=== PATIENT | female | born 1995 | race Caucasian/White ===

== ENCOUNTER 2017-09-03 20:15 | Emergency (ER) | payer BC ==
[2017-09-03] MEDS ORDERED: Ondansetron INJ* 2 MG/ML VIAL IV ONE (20:20)
[2017-09-03] MEDS ORDERED: Ketorolac INJ* 30 MG/ML 1 ML VIAL IV ONE (20:20)
[2017-09-03] MEDS ORDERED: NS 0.9% 1000 ML* 1,000 ML IV ONE (20:20)
[2017-09-03] MEDS ORDERED: diPHENhydraMINE IV* 50 MG in NS 0.9% 50 ML* 50 ML IVPB ONE (20:20)
[2017-09-03 21:12] LABS: Hematocrit 42 % (35-47); Hemoglobin 14.3 g/dl (12.0-16.0); Mean Corpuscular HGB Conc 34 g/dl (31-36); Mean Corpuscular Hemoglobin 30 pg (27-31); Mean Corpuscular Volume 87 fL (80-97); Mean Platelet Volume 9 um3 (7.4-10.4); Red Blood Count 4.82 10^6/ul (4.0-5.4); Red Cell Distribution Width 13 % (10.5-15); White Blood Count 8.3 10^3/ul (3.5-10.8)
[2017-09-03 21:22] LABS: ALT 16 U/L (7-52); AST 15 U/L (13-39); Albumin 4.5 g/dL (3.2-5.2); Alkaline Phosphatase 69 U/L (34-104); Anion Gap 10 mmol/L (2-11); BUN/Creatinine Ratio 10.9 (8-20); Blood Urea Nitrogen 11 mg/dL (6-24); CO2 Carbon Dioxide 24 mmol/L (22-32); Calcium 9.7 mg/dL (8.6-10.3); Chloride 102 mmol/L (101-111); EGFR Non-African American 69.2 (>60); Globulin 3.4 g/dL (2-4); Glucose 106 mg/dL (70-100); Magnesium 2.2 mg/dL (1.9-2.7); Potassium 3.4 mmol/L (3.5-5.0); Sodium 136 mmol/L (133-145); Total Protein 7.9 g/dL (6.4-8.9)
--- NOTE | 2017-09-03 21:31 | RAD ---
Indication: Syncope. Migraine headaches since Monday worsening today. Syncopal episode this evening. Comparison: No relevant prior exams available on the [facility] PACS for comparison. Technique: Noncontrast CT vertex of skull through foramen magnum. Report: The sulci, ventricles, and basal cisterns are normal for age. Barger matter white matter differentiation is preserved without evidence for edema. No intra or extra axial hemorrhage, mass, or fluid collection detected. Unremarkable visualized orbital contents. Unremarkable calvarium and skull base. Unremarkable scalp. The visualized paranasal sinuses and mastoid air spaces are clear. IMPRESSION: Negative unenhanced head CT.
--- NOTE | 2017-09-03 21:45 | ED ---
Sandip Rosario Abhishek, scribed for Veronica Curry MD on 09/03/17 at 2049 . Headache - HPI Summary HPI Summary: This patient is a 22 year old BIBA with a chief complaint of FLYNN since a Monday. The CC is described as worse since today. Pt states syncopal episode at evening around 1700. The patient rates the pain 9/10 in severity. Symptoms aggravated by nothing. Symptoms alleviated by nothing. Patient reports syncope, hot flashes , vomiting. Patient denies head injury s/p syncope. PMHx includes migraines and no HTN, DM. - History Of Current Complaint Chief Complaint: EDSyncope Stated Complaint: MIGRAINE Time Seen by Provider: 09/03/17 20:19 Hx Obtained From: Patient Onset/Duration: Sudden Onset - Syncopal episode this evening 1700, Started days ago - Since Monday, Still Present Initially Headache Was: Severe Currently Pain Is: Current Pain Scale(0-10)= - 9, Severe Timing: Days - since 3 days ago Character: Migraine Aggravating Factor: Nothing Allevating Factors: Nothing Associated Signs And Symptoms: Vomiting, Decreased LOC - Syncope, Other (Noted In Comments) - Hot flashes, - Allergies/Home Medications Allergies/Adverse Reactions: Allergies Allergy/AdvReac Type Severity Reaction Status Date / Time Apple Allergy Anaphylatic Verified 09/03/17 20:17 Shock Chamomile Allergy Headache Verified 09/03/17 20:22 Sulfate Allergy Itching Verified 09/03/17 20:17 PMH/Surg Hx/FS Hx/Imm Hx Endocrine/Hematology History: Denies: Hx Diabetes Cardiovascular History: Denies: Hx Hypertension Neurological History: Reports: Hx Migraine Infectious Disease History: No Infectious Disease History: Denies: Traveled Outside the [place] in Last 30 Days Review of Systems Constitutional: Negative Positive: Other - pt reports hot flashes Eyes: Negative ENT: Negative Cardiovascular: Negative Respiratory: Negative Positive: Vomiting Genitourinary: Negative Positive: Other - Negative head injury s/p syncopal episode Skin: Negative Positive: Headache - migraine, Syncope - Syncopal episode at 1700 Psychological: Normal All Other Systems Reviewed And Are Negative: Yes Physical Exam - Summary Physical Exam Summary: General: Well appearing, no pain distress Skin: Warm, Skin Color Reflects Adequate Perfusion, Dry Eyes: EOMI, MICHELLE ENT: Pharynx normal, TMs normal Neck: Supple, nontender Respiratory: CTA, breath sounds present, no rhonchi, no wheezes, no rales Cardiovascular: RRR, no murmur, no rub, no gallop Abdomen: Soft, nontender, Non-distended, no guarding, no rebound Bowel: Present Musculoskeletal: ADITYA, No edema Neuro: Sensory/motor intact, A&Ox3, CN intact 2-12 Psych: Moderate discomfort Triage Information Reviewed: Yes Vital Signs On Initial Exam: Initial Vitals Temp Pulse Resp BP Pulse Ox 99.1 F 83 17 134/81 98 09/03/17 20:20 09/03/17 20:20 09/03/17 20:20 09/03/17 20:20 09/03/17 20:20 Vital Signs Reviewed: Yes Diagnostics - Vital Signs Vital Signs Temp Pulse Resp BP Pulse Ox 09/03/17 20:20 99.1 F 83 17 134/81 98 - Laboratory Lab Results: Lab Results 09/03/17 09/03/17 Range/Units 20:30 20:30 WBC 8.3 (3.5-10.8) 10^3/ul RBC 4.82 (4.0-5.4) 10^6/ul Hgb 14.3 (12.0-16.0) g/dl Hct 42 (35-47) % MCV 87 (80-97) fL MCH 30 (27-31) pg MCHC 34 (31-36) g/dl RDW 13 (10.5-15) % Plt Count 342 (150-450) 10^3/ul MPV 9 (7.4-10.4) um3 Neut % (Auto) 58.7 (38-83) % Lymph % (Auto) 29.8 (25-47) % [place] % (Auto) 6.8 (1-9) % Eos % (Auto) 4.2 (0-6) % Baso % (Auto) 0.5 (0-2) % Absolute Neuts (auto) 4.9 (1.5-7.7) 10^3/ul Absolute Lymphs (auto) 2.5 (1.0-4.8) 10^3/ul Absolute Monos (auto) 0.6 (0-0.8) 10^3/ul Absolute Eos (auto) 0.4 (0-0.6) 10^3/ul Absolute Basos (auto) 0 (0-0.2) 10^3/ul Absolute Nucleated RBC 0.01 10^3/ul Nucleated RBC % 0.1 Sodium 136 (133-145) mmol/L Potassium 3.4 L (3.5-5.0) mmol/L Chloride 102 (101-111) mmol/L Carbon Dioxide 24 (22-32) mmol/L Anion Gap 10 (2-11) mmol/L BUN 11 (6-24) mg/dL Creatinine 1.01 H (0.51-0.95) mg/dL Est GFR ( Amer) 89.0 (>60) Est GFR (Non-Af Amer) 69.2 (>60) BUN/Creatinine Ratio 10.9 (8-20) Glucose 106 H (70-100) mg/dL Calcium 9.7 (8.6-10.3) mg/dL Magnesium 2.2 (1.9-2.7) mg/dL Total Bilirubin 0.30 (0.2-1.0) mg/dL AST 15 (13-39) U/L ALT 16 (7-52) U/L Alkaline Phosphatase 69 (34-104) U/L Troponin I 0.00 (<0.04) ng/mL Total Protein 7.9 (6.4-8.9) g/dL Albumin 4.5 (3.2-5.2) g/dL Globulin 3.4 (2-4) g/dL Albumin/Globulin Ratio 1.3 (1-3) Beta HCG, Quant < 0.60 mIU/mL Result Diagrams: 09/03/17 20:30 09/03/17 20:30 Lab Statement: Any lab studies that have been ordered have been reviewed, and results considered in the medical decision making process. - CT Brain CT CT Interpretation Completed By: Radiologist - Brain CT reveals Negative unenhanced head CT. ED physician has reviewed this radiology report and agrees. - EKG 2029 Cardiac Rate: NL - 75 bpm EKG Interpretation: Normal rate and rhythm 2045 Cardiac Rate: Tachycardia - 101 bpm s/p given Zofran EKG Rhythm: Sinus Tachycardia Headache Course/Dx - Course Course Of Treatment: 22 yo with migraines who was driving back to after fall break with a migraine who vomited 1x on the way home and then fainted (likely vaso vagal ) when she got out of the car in 's parking lot. She was unsure if she hit her head, ct here and labs and ekg were neg. Of note, pt takes oral zofran regularly but when she got iv zofran here she felt her chest get tight and her hr went up to 160, it quickly came down with calming efforts and she was given benadryl (for the migraine but also in case of allergic rxn to the zofran) and toradol and she is feeling better with no flynn at this time. she will finish her one liter of fluid and be discharged home - Diagnoses Provider Diagnoses: Syncope, Migraine, Drug reaction Discharge - Discharge Plan Condition: Stable Disposition: HOME Patient Education Materials: Migraine Headache (ED), Syncope (ED) Additional Instructions: Follow up at [facility] within 2 to 3 days. The documentation as recorded by the Sandip lutz Abhishek accurately reflects the service I personally performed and the decisions made by me, Veronica Curry MD.
[2017-09-03 22:02] VITALS: BP 122/60
== END 2017-09-03 22:12 | disposition home or self-care (01) ==
LOC: ED 20:15
DX: R55 Syncope and collapse (principal); G43.909 Migraine, unspecified, not intractable, without status migrainosus; T50.905A Adverse effect of unspecified drugs, medicaments and biological substances, initial encounter; R11.10 Vomiting, unspecified; Y92.9 Unspecified place or not applicable
CPT/HCPCS: 36415; 70450; 80053; 83735; 84484; 84702; 85025; 93005; 99283; J1200; J1885; J2405

== ENCOUNTER 2017-09-07 13:45 | Emergency (ER) | payer BC ==
[2017-09-07 14:36] VITALS: BP 134/78
[2017-09-07] MEDS ORDERED: Metoclopramide IV* 5 MG/ML 2 ML VIAL IV ONE (14:40)
[2017-09-07] MEDS ORDERED: diPHENhydraMINE IV* 50 MG/ML 1 ml VIAL (BENADRYL) IV ONE (14:40)
[2017-09-07] MEDS ORDERED: NS 0.9% 1000 ML* 1,000 ML IV ONE (14:40)
[2017-09-07] MEDS ORDERED: Ketorolac INJ* 30 MG/ML 1 ML VIAL IV ONE (14:40)
[2017-09-07 15:19] LABS: Hematocrit 41 % (35-47); Hemoglobin 13.8 g/dl (12.0-16.0); Mean Corpuscular HGB Conc 34 g/dl (31-36); Mean Corpuscular Hemoglobin 30 pg (27-31); Mean Corpuscular Volume 88 fL (80-97); Mean Platelet Volume 9 um3 (7.4-10.4); Red Blood Count 4.63 10^6/ul (4.0-5.4); Red Cell Distribution Width 13 % (10.5-15); White Blood Count 7.8 10^3/ul (3.5-10.8)
[2017-09-07 15:44] LABS: BUN/Creatinine Ratio 11.4 (8-20); Calcium 9.2 mg/dL (8.6-10.3); EGFR African American 104.3 (>60); EGFR Non-African American 81.1 (>60); Globulin 3.3 g/dL (2-4); Potassium 4.1 mmol/L (3.5-5.0); Total Bilirubin 0.3 mg/dL (0.2-1.0); Total Protein 7.3 g/dL (6.4-8.9)
[2017-09-07 16:54] LABS: Erythrocyte Sed Rate 29 mm/Hr (0-14)
[2017-09-07 16:56] LABS: Urine Bacteria Absent (Absent); Urine Bilirubin Negative (Negative); Urine Glucose Negative (Negative); Urine Nitrite Negative (Negative)
--- NOTE | 2017-09-08 18:58 | ED ---
Dequan Rosario Thomas, scribed for Richard Ordoñez MD on 09/07/17 at 1447 . Headache - HPI Summary HPI Summary: The pt is a 22 y/o F referred from [facility] and c/o a migraine headache for the last eight days. The pain is aggravated by bright lights and loud sounds. It is alleviated by nothing. She rates the pain 9/10. The patient takes Maxalt for her migraine headaches although this has not alleviated her symptoms. Per patient, she was seen at [facility] four days ago after she had a syncopal episode secondary to the pain. Pt additionally c/o nausea, vomiting, blurred vision, tingling in her hands, dizziness, photophobia, and phonophobia. Pt denies fever and neck pain. - History Of Current Complaint Chief Complaint: EDHeadache Stated Complaint: HEADACHE/8DAYS Time Seen by Provider: 09/07/17 14:34 Hx Obtained From: Patient Onset/Duration: Started days ago - onset of headache 8 days ago, Still Present Currently Pain Is: Current Pain Scale(0-10)= - 9 Timing: Constant Character: Migraine Aggravating Factor: Bright Lights, Other - Loud sounds Allevating Factors: Nothing Associated Signs And Symptoms: Dizziness, Nausea, Vomiting, Other (Noted In Comments) - Blurred vision, tingling in her hands, photophobia, phonophobia; NEGATIVE: fever, back pain Related History: Similar Episode/DX As: - prior migraines - Allergies/Home Medications Allergies/Adverse Reactions: Allergies Allergy/AdvReac Type Severity Reaction Status Date / Time Apple Allergy Anaphylatic Verified 09/03/17 20:17 Shock Chamomile Allergy Headache Verified 09/03/17 20:22 Ondansetron [From Zofran] Allergy Tachycardia Verified 09/03/17 22:04 Sulfate Allergy Itching Verified 09/03/17 20:17 PMH/Surg Hx/FS Hx/Imm Hx Previously Healthy: No Endocrine/Hematology History: Denies: Hx Diabetes Cardiovascular History: Denies: Hx Hypertension Neurological History: Reports: Hx Migraine - Surgical History Surgery Procedure, Year, and Place: [place] teeth extraction, adenoidectomy Infectious Disease History: No Infectious Disease History: Denies: Traveled Outside the [place] in Last 30 Days - Family History Known Family History: Positive: Other - Migraines, CVA - Social History Alcohol Use: Rare Hx Substance Use: No Substance Use Type: Reports: None Hx Tobacco Use: No Smoking Status (MU): Never Smoked Tobacco Review of Systems Negative: Fever Positive: Photophobia, Blurred Vision Positive: Other - Phonophobia Positive: Vomiting, Nausea Negative: Other - NEGATIVE: neck pain Neurological: Other - Tingling in her hands, dizziness Positive: Headache - migraine All Other Systems Reviewed And Are Negative: Yes Physical Exam - Summary Physical Exam Summary: VITAL SIGNS: Reviewed. GENERAL: Patient is a well-developed and nourished female who is lying comfortable in the stretcher. Patient is not in any acute respiratory distress. HEAD AND FACE: No signs of trauma. No ecchymosis, hematomas or skull depressions. No sinus tenderness. EYES: PERRLA, EOMI x 2, No injected conjunctiva, no nystagmus. EARS: Hearing grossly intact. Ear canals and tympanic membranes are within normal limits. MOUTH: Oropharynx within normal limits. NECK: Supple, trachea is midline, no adenopathy, no JVD, no carotid bruit, no c- spine tenderness, neck with full ROM. CHEST: Symmetric, no tenderness at palpation LUNGS: Clear to auscultation bilaterally. No wheezing or crackles. CVS: Regular rate and rhythm, S1 and S2 present, no murmurs or gallops appreciated. ABDOMEN: Soft, non-tender. No signs of distention. No rebound no guarding, and no masses palpated. Bowel sounds are normal. EXTREMITIES: FROM in all major joints, no edema, no cyanosis or clubbing. NEURO: Alert and oriented x 3. No acute neurological deficits. Speech is normal and follows commands. SKIN: Dry and warm Triage Information Reviewed: Yes Vital Signs On Initial Exam: Initial Vitals Temp Pulse Resp BP Pulse Ox 98.4 F 87 17 131/80 99 09/07/17 13:48 09/07/17 13:48 09/07/17 13:48 09/07/17 13:48 09/07/17 13:48 Vital Signs Reviewed: Yes - Dresser Coma Scale Coma Scale Total: 15 Diagnostics - Vital Signs Vital Signs Temp Pulse Resp BP Pulse Ox 09/07/17 14:24 73 99 09/07/17 14:22 134/78 09/07/17 13:48 98.4 F 87 17 131/80 99 - Laboratory Lab Results: Lab Results 09/07/17 09/07/17 09/07/17 Range/Units 15:05 15:05 16:10 WBC 7.8 (3.5-10.8) 10^3/ul RBC 4.63 (4.0-5.4) 10^6/ul Hgb 13.8 (12.0-16.0) g/dl Hct 41 (35-47) % MCV 88 (80-97) fL MCH 30 (27-31) pg MCHC 34 (31-36) g/dl RDW 13 (10.5-15) % Plt Count 286 (150-450) 10^3/ul MPV 9 (7.4-10.4) um3 Neut % (Auto) 55.1 (38-83) % Lymph % (Auto) 32.9 (25-47) % [place] % (Auto) 5.6 (1-9) % Eos % (Auto) 5.8 (0-6) % Baso % (Auto) 0.6 (0-2) % Absolute Neuts (auto) 4.3 (1.5-7.7) 10^3/ul Absolute Lymphs (auto) 2.6 (1.0-4.8) 10^3/ul Absolute Monos (auto) 0.4 (0-0.8) 10^3/ul Absolute Eos (auto) 0.4 (0-0.6) 10^3/ul Absolute Basos (auto) 0 (0-0.2) 10^3/ul Absolute Nucleated RBC 0 10^3/ul Nucleated RBC % 0 ESR 29 H (0-14) mm/Hr Sodium 136 (133-145) mmol/L Potassium 4.1 (3.5-5.0) mmol/L Chloride 105 (101-111) mmol/L Carbon Dioxide 25 (22-32) mmol/L Anion Gap 6 (2-11) mmol/L BUN 10 (6-24) mg/dL Creatinine 0.88 (0.51-0.95) mg/dL Est GFR ( Amer) 104.3 (>60) Est GFR (Non-Af Amer) 81.1 (>60) BUN/Creatinine Ratio 11.4 (8-20) Glucose 84 (70-100) mg/dL Calcium 9.2 (8.6-10.3) mg/dL Total Bilirubin 0.30 (0.2-1.0) mg/dL AST 13 (13-39) U/L ALT 16 (7-52) U/L Alkaline Phosphatase 56 (34-104) U/L Total Protein 7.3 (6.4-8.9) g/dL Albumin 4.0 (3.2-5.2) g/dL Globulin 3.3 (2-4) g/dL Albumin/Globulin Ratio 1.2 (1-3) Urine Color Yellow Urine Appearance Cloudy Urine pH 6.0 (5-9) Ur Specific [place] 1.014 (1.010-1.030) Urine Protein Negative (Negative) Urine Ketones Negative (Negative) Urine Blood 1+ H (Negative) Urine Nitrate Negative (Negative) Urine Bilirubin Negative (Negative) Urine Urobilinogen Negative (Negative) Ur Leukocyte Esterase 1+ H (Negative) Urine WBC (Auto) Trace(0-5/hpf) (Absent) Urine RBC (Auto) Trace(0-2/hpf) (Absent) Ur Squamous Epith Cells Present H (Absent) Urine Bacteria Absent (Absent) Urine Glucose Negative (Negative) Result Diagrams: 09/07/17 15:05 09/07/17 15:05 Lab Statement: Any lab studies that have been ordered have been reviewed, and results considered in the medical decision making process. Headache Course/Dx - Course Assessment/Plan: The pt is a 22 y/o F referred from [facility] and c/o a migraine headache for the last eight days. The pain is aggravated by bright lights and loud sounds. It is alleviated by nothing. She rates the pain 9/10. The patient takes Maxalt for her migraine headaches although this has not alleviated her symptoms. Per patient, she was seen at [facility] four days ago after she had a syncopal episode secondary to the pain. Pt additionally c/o nausea, vomiting, blurred vision, tingling in her hands, dizziness, photophobia, and phonophobia. Pt denies fever and neck pain. Test results are without any significant abnormality. UA is negative for UTI. In the ED course, the patient was given IV fluids, Reglan, and Toradol, and her symptoms improved. She declined any Benadryl. The patient reports that her symptoms have resolved and she requests to be discharged home. Therefore, the patient will be discharged home with follow up by primary care. The patient is hemodynamically stable and alert and oriented x 3 - Diagnoses Differential Diagnosis/HQI/PQRI: CVA, TIA, Meningitis, Migraine, Sinus Headache , Tension Headache Provider Diagnoses: Headache Discharge - Discharge Plan Condition: Stable Disposition: HOME Patient Education Materials: Migraine Headache (ED) Referrals: [facility] [Primary Care Provider] - 3 Days Additional Instructions: Follow up at [facility] in 2-3 days. The documentation as recorded by the Dequan lutz Thomas accurately reflects the service I personally performed and the decisions made by Tiago caputo Walter, MD.
== END 2017-09-07 16:46 | disposition home or self-care (01) ==
LOC: ED 13:45
DX: R51 Headache (principal); H53.149 Visual discomfort, unspecified; H53.8 Other visual disturbances; R11.2 Nausea with vomiting, unspecified
CPT/HCPCS: 36415; 80053; 81003; 81015; 85025; 85652; 87086; 96374; 96375; 99282; J1200; J1885; J2765